=== PATIENT | female | born 1995 | race Caucasian/White ===

== ENCOUNTER 2018-03-11 00:26 | Emergency (ER) | payer BC, OTHER ==
[~2018-03-11] VITALS: Ht 180.3 cm; Wt 67.4 kg
[~2018-03-11 00:26] MED LIST: LXP10 PO
[2018-03-11 00:36] VITALS: TEMP 36.4; O2SAT 96; Ht 180.3 cm; Wt 67.4 kg
[2018-03-11 01:14] LABS: CALCIUM 8.3 mg/dl (8.5-10.1); CREATININE 0.77 mg/dl (0.60-1.20); POTASSIUM 3.3 mmol/L (3.5-5.1)
[2018-03-11 06:08] VITALS: BP 99/56; PULSE 89; O2SAT 96
--- NOTE | 2018-03-11 06:18 | EMERGENCY ROOM VISIT NOTE ---
ED Visit Note First contact with patient: 00:27 CHIEF COMPLAINT: Altered mental status from Alcohol overdose HISTORY OF PRESENT ILLNESS: This 22 year old white female patient presents to the emergency department via ambulance for evaluation of altered mental status, presumably from alcohol intoxication. The patient was found sleeping outside an apartment complex covered in vomit. She smelled of alcohol and was difficult to arouse. EMS was contacted, and now the patient presents for further evaluation. The patient does not report injury or trauma. She states that she was with her friends tonight at a green party, and she was going home afterwards. She does not have any concern for physical or sexual assault. She denies drug use. No chronic medical disease REVIEW OF SYSTEMS: Review of systems was somewhat limited secondary to patient' s presumed alcohol intoxication status. Review of systems was performed to the best of our ability and reperformed as the patient began to sober up. All other systems were reviewed and are negative. ALLERGIES: See EMR MEDICATIONS: See EMR PMH: No chronic medical disease SOCIAL HISTORY: Lives locally, drinks alcohol PHYSICAL EXAM VITALS: Vitals are noted on the nurse's note and reviewed by myself. Vital signs stable. GENERAL: White female, who is in no acute distress and resting comfortably. Patient is visibly altered and smells of alcohol. HEAD: Normocephalic atraumatic. EARS: External ear normal. External auditory canals clear, tympanic membranes pearly sullivan without erythema or effusion bilaterally. EYES: Pupils equal round and reactive to light and accommodation. Conjunctivae without injection, sclerae without icterus. Extraocular movements intact. NOSE: Patent, turbinates without inflammation or discharge. MOUTH: Mucous membranes moist. Tonsils are not enlarged. Pharynx without erythema, blood, vomitus, or exudate. Uvula midline. Airway patent. NECK: Supple without nuchal rigidity. No lymphadenopathy. Cervical spine is nontender. HEART: Regular rate and rhythm without murmurs gallops or rubs. LUNGS: Clear to auscultation bilaterally without wheezes, rales or rhonchi. No retractions or accessory muscle use. ABDOMEN: Positive normal bowel sounds x 4. Soft, nontender, without masses or organomegaly. No guarding or rebound tenderness. MUSCULOSKELETAL: No muscle atrophy, erythema, or edema noted. Gross motor function intact to all extremities. NEURO: Patient was alert to person but not place or time. They appear with altered mental status. SKIN: The skin was without rashes, erythema, edema, or bruising. No Tenting of the skin. EMERGENCY DEPARTMENT COURSE: Physical exam and history was performed. Nursing notes and EMR were reviewed. The patient appears to be altered on my examination. I suspect this is from an alcohol overdose. Conservative care measures and aspiration precautions were instituted. The patient was placed on desk monitor and watched during the patient's stay. The patient was placed in a prone position. Blood work was obtained and was reviewed. The patient's blood alcohol level was 271. This appears to be the primary cause of the altered status. Patient was reevaluated multiple times throughout the course of their emergency department stay. Over time the patient did sober up and was able to talk, walk , and drink fluids without difficulty. The patient was felt stable for discharge home. The patient was given alcohol intoxication handouts. The patient was discharged home in stable condition when sober. Differential diagnosis: Etiologies such as alcohol intoxication, metabolic, infection, hypoglycemia, electrolyte abnormalities, cardiac sources, intracerebral event, toxicologic, neurologic, as well as others were entertained. DIAGNOSIS: Alcohol use with intoxication Current/Historical Medications Unable to Obtain Active Prescriptions or Reported Meds Allergies Coded Allergies: No Known Allergies (Unverified , 04/20/16) Vital Signs Date Time Temp Pulse Resp B/P (MAP) Pulse Ox O2 Delivery O2 Flow Rate FiO2 03/11/18 06:08 89 18 99/56 96 Room Air 03/11/18 04:43 90 16 109/55 92 Room Air 03/11/18 04:37 95 03/11/18 02:21 88 18 108/79 98 Room Air 03/11/18 01:45 80 20 114/67 98 Room Air 03/11/18 00:41 78 03/11/18 00:36 96 Room Air 03/11/18 00:36 36.4 83 16 117/72 96 Room Air Laboratory Results 03/11/18 00:48 Test 03/11/18 00:48 Anion Gap 12.0 mmol/L (3-11) Est Creatinine Clear Calc Drug Dose 123.0 ml/min Estimated GFR () 127.9 Estimated GFR (Non- 110.4 BUN/Creatinine Ratio 15.9 (10-20) Calcium Level 8.3 mg/dl (8.5-10.1) Human Chorionic Gonadotropin, Qual NEG (NEG) Ethyl Alcohol mg/dL 271.0 mg/dl (0-3) Departure Information Impression Primary Impression: Alcohol use with intoxication Dispostion Home / Self-Care Condition GOOD Prescriptions Unable to Obtain Active Prescriptions or Reported Meds Forms HOME CARE DOCUMENTATION FORM, IMPORTANT VISIT INFORMATION Patient Instructions My [facility] Additional Instructions You were seen and evaluated today on an emergency basis only. This is not a substitute for, or an effort to provide, complete comprehensive medical care. It is not possible to recognize and treat all injuries or illnesses in a single emergency department visit. Keep well-hydrated. Small sips of water over a long period of time are better tolerated than large amounts at once. Tylenol 1000 mg every 6 hours as needed for pain (Maximum 3000 mg Tylenol in 24 hr period). Follow up with family doctor as needed. You are welcome to return to the emergency department anytime with new, worsening, or concerning symptoms.
== END 2018-03-11 06:35 | disposition home or self-care (01) ==
LOC: EDBD 00:26 → C.EDC 00:27 → C.EDB 06:35
DX: F10.929 Alcohol use, unspecified with intoxication, unspecified (principal); Y90.8 Blood alcohol level of 240 mg/100 ml or more

== ENCOUNTER 2018-03-13 04:10 | Inpatient (IN) | payer BC, OTHER ==
[~2018-03-13] VITALS: Ht 180.3 cm; Wt 65.3 kg
--- NOTE | 2018-03-13 04:24 | EMERGENCY ROOM VISIT NOTE ---
History Report prepared by Allie: Ryan Weems Under the Supervision of: Dr. Flavio Rodriguez M.D. First contact with patient: 04:17 Chief Complaint: MENTAL HEALTH EVALUATION Stated Complaint: MENTAL HEALTH EVAL History of Present Illness The patient is a 22 year old female who presents to the Emergency Room with complaints of resolved suicidal ideations that occurred just CONTINUOUS MINER. The patient states she has had similar ideations two years ago. She reports a history of anxiety and depression. The patient notes she has been coping with this by drinking large amounts of alcohol. She states she has a therapist and psychiatrist. The patient reports she was not drinking tonight. She notes she planned to jump off a parking garage. The patient states she was in her car on her way to the garage when she stopped and called an Uber to the ED. She reports she wants her parents to be involved, but she does not want them to know just yet. The patient notes she stopped taking Lexapro several months ago per her psychiatrist. She denies HI. Source of History: patient Onset: CONTINUOUS MINER Quality: other (SI) Timing: resolved Modifying Factors (Worsening): other (alcohol) Note: Denies HI Review of Systems See HPI for pertinent positives & negatives. A total of 10 systems reviewed and were otherwise negative. Past Medical & Surgical Medical Problems: (1) Anxiety (2) Depression Family History Patient reports no known family medical history. Social History Smoking Status: Never Smoker Alcohol Use: occasionally Housing Status: lives with roommate Occupation Status: [employer] student Current/Historical Medications No Active Prescriptions or Reported Meds Allergies Coded Allergies: No Known Allergies (Unverified , 04/20/16) Physical Exam Vital Signs Date Time Temp Pulse Resp B/P (MAP) Pulse Ox O2 Delivery O2 Flow Rate FiO2 03/13/18 11:40 36.8 81 20 126/85 98 03/13/18 07:00 81 20 126/85 98 Room Air 03/13/18 04:13 36.8 77 18 134/91 95 Room Air Physical Exam GENERAL: Awake, alert, well-appearing, in no acute distress HENT: Normocephalic, atraumatic. Oropharynx unremarkable. EYES: Normal conjunctiva. Sclera non-icteric. NECK: Supple. No nuchal rigidity. FROM. No JVD. RESPIRATORY: Clear to auscultation. CARDIAC: Regular rate, normal rhythm. Extremities warm and well perfused. Pulses equal. ABDOMEN: Soft, non-distended. No tenderness to palpation. No rebound or guarding. No masses. RECTAL: Deferred. MUSCULOSKELETAL: Chest examination reveals no tenderness. The back is symmetrical on inspection without obvious abnormality. There is no CVA tenderness to palpation. No joint edema. LOWER EXTREMITIES: Calves are equal size bilaterally and non-tender. No edema. No discoloration. NEURO: Normal sensorium. No sensory or motor deficits noted. SKIN: No rash or jaundice noted. PSYCH: Admits to SI with a plan. Denies HI. Medical Decision & Procedures Laboratory Results 03/13/18 04:57 Red Blood Count 4.37, Mean Corpuscular Volume 91.8, Mean Corpuscular Hemoglobin 32.0, Mean Corpuscular Hemoglobin Concent 34.9, Mean Platelet Volume 9.8, Neutrophils (%) (Auto) 82.1, Lymphocytes (%) (Auto) 9.5, Monocytes (%) (Auto) 7.3, Eosinophils (%) (Auto) 0.4, Basophils (%) (Auto) 0.2, Neutrophils # (Auto) 8.16, Lymphocytes # (Auto) 0.94, Monocytes # (Auto) 0.72, Eosinophils # (Auto) 0.04, Basophils # (Auto) 0.02 03/13/18 04:57 Test 03/13/18 04:45 03/13/18 04:57 Urine Color YELLOW Urine Appearance CLOUDY (CLEAR) Urine pH 5.5 (4.5-7.5) Urine Specific [place] 1.012 (1.000-1.030) Urine Protein NEG (NEG) Urine Glucose (UA) NEG (NEG) Urine Ketones NEG (NEG) Urine Occult Blood TRACE (NEG) Urine Nitrite NEG (NEG) Urine Bilirubin NEG (NEG) Urine Urobilinogen NEG (NEG) Urine Leukocyte Esterase NEG (NEG) Urine WBC (Auto) 1-5 /hpf (0-5) Urine RBC (Auto) 5-10 /hpf (0-4) Urine Hyaline Casts (Auto) 0 /lpf (0-5) Urine Epithelial Cells (Auto) >30 /lpf (0-5) Urine Bacteria (Auto) 2+ (NEG) Urine Opiates Screen NEG (NEG) Urine Methadone, Qualitative NEG (NEG) Urine Barbiturates NEG (NEG) Urine Phencyclidine (PCP) Level NEG (NEG) Ur Amphetamine/Methamphetamine NEG (NEG) MDMA (Ecstasy) Screen NEG (NEG) Urine Benzodiazepines Screen NEG (NEG) Urine Cocaine Metabolite NEG (NEG) Urine Marijuana (THC) POS (NEG) White Blood Count 9.93 K/uL (4.8-10.8) Red Blood Count 4.37 M/uL (4.2-5.4) Hemoglobin 14.0 g/dL (12.0-16.0) Hematocrit 40.1 % (37-47) Mean Corpuscular Volume 91.8 fL (80-100) Mean Corpuscular Hemoglobin 32.0 pg (25-34) Mean Corpuscular Hemoglobin Concent 34.9 g/dl (32-36) Platelet Count 420 K/uL (130-400) Mean Platelet Volume 9.8 fL (7.4-10.4) Neutrophils (%) (Auto) 82.1 % Lymphocytes (%) (Auto) 9.5 % Monocytes (%) (Auto) 7.3 % Eosinophils (%) (Auto) 0.4 % Basophils (%) (Auto) 0.2 % Neutrophils # (Auto) 8.16 K/uL (1.4-6.5) Lymphocytes # (Auto) 0.94 K/uL (1.2-3.4) Monocytes # (Auto) 0.72 K/uL (0.11-0.59) Eosinophils # (Auto) 0.04 K/uL (0-0.5) Basophils # (Auto) 0.02 K/uL (0-0.2) RDW Standard Deviation 44.9 fL (36.4-46.3) RDW Coefficient of Variation 13.3 % (11.5-14.5) Immature Granulocyte % (Auto) 0.5 % Immature Granulocyte # (Auto) 0.05 K/uL (0.00-0.02) Urine Test NEG (NEG) Anion Gap 10.0 mmol/L (3-11) Est Creatinine Clear Calc Drug Dose 101.9 ml/min Estimated GFR () 105.9 Estimated GFR (Non- 91.4 BUN/Creatinine Ratio 15.2 (10-20) Calcium Level 8.9 mg/dl (8.5-10.1) Total Bilirubin 0.6 mg/dl (0.2-1) Direct Bilirubin 0.2 mg/dl (0-0.2) Aspartate Amino Transf (AST/SGOT) 18 U/L (15-37) Alanine Aminotransferase (ALT/SGPT) 19 U/L (12-78) Alkaline Phosphatase 66 U/L (45-117) Total Protein 8.4 gm/dl (6.4-8.2) Albumin 4.0 gm/dl (3.4-5.0) Thyroid Stimulating Hormone (TSH) 1.480 uIu/ml (0.300-4.500) Ethyl Alcohol mg/dL < 3.0 mg/dl (0-3) Labs reviewed by ED physician. ED Course 0442: Past medical records reviewed. The patient was evaluated in room A06. A complete history and physical examination was performed. 0557: The patient was evaluated by psych management. The patient is pending bed placement. 0645: The patient was signed out to Dr. Olivo at the change of shift. Please refer to his note for further disposition. Medical Decision Differential diagnosis: Etiologies such as mood disorder, infection, hypoglycemia, electrolyte abnormalities, cardiac sources, intracerebral event, toxicologic, neurologic, as well as others were entertained. This is a 22-year-old female who presents emergency department over concerns she is going to harm herself. The patient wishes to jump off a parking [place] downtown. I asked to discuss the patient with her parents however at this point she is declining. I will also note the patient arrives during a period of high volume and high acuity. She was medically cleared by me and independently evaluated by [facility]. who admitted the patient to the floor. Medication Reconcilliation Current Medication List: was personally reviewed by me Blood Pressure Screening Patient's blood pressure: Elevated blood pressure Blood pressure disposition: Elevated BP felt to be situational Impression Primary Impression: Suicidal ideation Scribe Attestation The scribe's documentation has been prepared under my direction and personally reviewed by me in its entirety. I confirm that the note above accurately reflects all work, treatment, procedures, and medical decision making performed by me. Departure Information Dispostion Still a Patient Prescriptions No Active Prescriptions or Reported Meds Referrals No Doctor, Assigned (PCP) Patient Instructions My [facility]
[2018-03-13 05:09] LABS: BASO % 0.2 %; BASO ABS # 0.02 K/uL (0-0.2); EOS % 0.4 %; EOS ABS # 0.04 K/uL (0-0.5); HEMATOCRIT 40.1 % (37-47); IG# 0.05 K/uL (0.00-0.02); LYMPH % 9.5 %; LYMPH ABS # 0.94 K/uL (1.2-3.4); MEAN CELL VOLUME 91.8 fL (80-100); MEAN CORPUSCULAR HGB CONC 34.9 g/dl (32-36); MEAN PLATELET VOLUME 9.8 fL (7.4-10.4); MONO % 7.3 %; MONO ABS # 0.72 K/uL (0.11-0.59); NEUT % 82.1 %; NEUT ABS # 8.16 K/uL (1.4-6.5); PLATELET COUNT 420 K/uL (130-400); RED CELL DISTRIBUTION WIDTH CV 13.3 % (11.5-14.5); RED CELL DISTRIBUTION WIDTH SD 44.9 fL (36.4-46.3); WHITE BLOOD COUNT 9.93 K/uL (4.8-10.8)
[2018-03-13 05:40] LABS: CALCIUM 8.9 mg/dl (8.5-10.1); CREATININE 0.9 mg/dl (0.60-1.20); POTASSIUM 3.5 mmol/L (3.5-5.1); TOTAL PROTEIN 8.4 gm/dl (6.4-8.2)
--- NOTE | 2018-03-13 06:48 | EMERGENCY ROOM VISIT NOTE ---
ED Visit Note First contact with patient: 06:46 The patient was taken in signout from Dr. Rodriguze at the change of shift. Please see that note for details. The patient was pending psychiatric evaluation. The patient was reassessed and is resting comfortably. She was evaluated by [facility] mental health and accepted as a voluntary admission for further management.
[2018-03-13 11:40] VITALS: O2SAT 98
--- NOTE | 2018-03-13 14:00 | Psychiatric History & Physical ---
History Date of Service Mar 13, 2018. Identifying Data Sunita Alvarado is a 22-year-old female admitted on Mar 13, 2018 at 11:50 who currently is attending her Senior year at [employer]. Sunita Alvarado was admitted on a 201 voluntary commitment following worsening depression and SI with plan to jump off a parking garage. Information provided by the patient is considered to be reliable. Chief Complaint "I've been drinking a decent amount of alcohol, strung along with anxiety and depression." History of Present Illness Sunita Alvarado is a 22-year-old female admitted voluntarily for inpatient mental health treatment due to worsening depression and SI. Pt had been experiencing feelings of hopelessness for the last few weeks. Pt states she has been feeling much lower over the past few weeks. She reports that she has been feeling "fake " recently. Pt feels she has been a high-achiever, but is no longer feeling motivation behind her achievements. 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 She feels as though she continues to go through the actions, but is not feeling as interested in these tasks. Pt states she has "kept it all together." Pt was last hospitalized on our unit in 04/2016 for similar concerns. She states, "I've made no true changes from the time before." A significant stressor recently has been the patient's second public intoxication charge. Pt states she has used alcohol as a coping mechanism for quite some time, but is now realizing it has become a problem for her. Pt states she drinks to excess 6 + drinks per night about 3-4 nights per week. Pt is aware that this has not been helping her mood. Pt reports depressive symptoms of low mood, anhedonia, decreased motivation, difficulty falling asleep, decreased appetite, and hopelessness. Pt states she has had passive SI, "always in the back of my mind." This has worsened over the last few days. Pt states she had had a plan to jump from the parking garage for several days, but did not share with her friends that she had been feeling this way. She states, "I waited until my roommates were home asleep and then I got in my car." She states she sat in her car before turning it on, and realized she needed help. Pt called an Uber to drive her to the ED. Pt reports anxiety specifically related to school. She experiences racing thoughts and feels as though she can "never truly relax". Pt experiences tachycardia with her anxiety. Pt denies HI, A/V hallucinations, paranoia, rosa , symptoms more consistent with bipolar disorder, OCD, PTSD, and eating disorder. Pt denies other specific psychiatric concerns at this time. Past Psychiatric History Current OP Treatment: psychiatrist (Helen), therapist (Yasmin Cervantes) Prior Psych Hospitalizations: [facility] (04/2016) Access to a Gun: No Suicide Attempts: No Past Medication Trials Lexapro 10mg Past Medical/Surgical History History of Concussion/Seizure: No Allergies Allergies: Coded Allergies: No Known Allergies (Unverified , 04/20/16) Home Medications No Active Prescriptions or Reported Meds Family History Patient reports no known family medical history. History of Suicide: No History of Substance Abuse: Yes (grandfather - alcoholism) Psychiatric History: Yes Alcohol Use Alcohol Use In Past 12 Months: Yes (6 drinks 3 or 4 times a week) Smoking Use Smoking Status: Former Smoker Substance History Pt reports previous regular use of marijuana. States she has not been using as frequently. Denies other use of illicit substances. Reports drinking about 2- 3 cans of soda per day. 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 Relationship History: never Children: 0 Spiritual Affiliation: Voodoo. Goes to orthodoxy once monthly Legal History: reported (reports 1 underage drinking, and 2 public indecency charges) Psychological Trauma History: Denies Hx Traumatic Event Review of Systems Psych: denies symptoms other than stated above Constitutional: reports feeling as though she has a fever, recent weight loss Cardiovascular: reports tachycardia with anxiety GI: denied Neurologic: denied Musculoskeletal: reports back pain and tightness Remainder of 10 body systems also reviewed and denied other than noted above. Examination Physical Examination A physical exam was performed in the ER prior to admission to the unit by Dr. Flavio Rodriguez M.D.. I accept that physical as correct/medical clearance for the inpatient physical exam. Vital Signs Vital Signs Past 12 Hours Date Time Temp Pulse Resp B/P (MAP) Pulse Ox O2 Delivery O2 Flow Rate FiO2 03/13/18 11:40 36.8 81 20 126/85 98 03/13/18 07:00 81 20 126/85 98 Room Air 03/13/18 04:13 36.8 77 18 134/91 95 Room Air Laboratory Results Last 24 Hours Test 03/13/18 04:45 03/13/18 04:57 Urine Color YELLOW Urine Appearance CLOUDY Urine pH 5.5 Urine Specific [place] 1.012 Urine Protein NEG Urine Glucose (UA) NEG Urine Ketones NEG Urine Occult Blood TRACE Urine Nitrite NEG Urine Bilirubin NEG Urine Urobilinogen NEG Urine Leukocyte Esterase NEG Urine WBC (Auto) 1-5 /hpf Urine RBC (Auto) 5-10 /hpf Urine Hyaline Casts (Auto) 0 /lpf Urine Epithelial Cells (Auto) >30 /lpf Urine Bacteria (Auto) 2+ Urine Opiates Screen NEG Urine Methadone, Qualitative NEG Urine Barbiturates NEG Urine Phencyclidine (PCP) Level NEG Ur Amphetamine/Methamphetamine NEG MDMA (Ecstasy) Screen NEG Urine Benzodiazepines Screen NEG Urine Cocaine Metabolite NEG Urine Marijuana (THC) POS White Blood Count 9.93 K/uL Red Blood Count 4.37 M/uL Hemoglobin 14.0 g/dL Hematocrit 40.1 % Mean Corpuscular Volume 91.8 fL Mean Corpuscular Hemoglobin 32.0 pg Mean Corpuscular Hemoglobin Concent 34.9 g/dl Platelet Count 420 K/uL Mean Platelet Volume 9.8 fL Neutrophils (%) (Auto) 82.1 % Lymphocytes (%) (Auto) 9.5 % Monocytes (%) (Auto) 7.3 % Eosinophils (%) (Auto) 0.4 % Basophils (%) (Auto) 0.2 % Neutrophils # (Auto) 8.16 K/uL Lymphocytes # (Auto) 0.94 K/uL Monocytes # (Auto) 0.72 K/uL Eosinophils # (Auto) 0.04 K/uL Basophils # (Auto) 0.02 K/uL RDW Standard Deviation 44.9 fL RDW Coefficient of Variation 13.3 % Immature Granulocyte % (Auto) 0.5 % Immature Granulocyte # (Auto) 0.05 K/uL Urine Test NEG Sodium Level 136 mmol/L Potassium Level 3.5 mmol/L Chloride Level 103 mmol/L Carbon Dioxide Level 23 mmol/L Anion Gap 10.0 mmol/L Blood Urea Nitrogen 14 mg/dl Creatinine 0.90 mg/dl Est Creatinine Clear Calc Drug Dose 101.9 ml/min Estimated GFR () 105.9 Estimated GFR (Non- 91.4 BUN/Creatinine Ratio 15.2 Random Glucose 101 mg/dl Calcium Level 8.9 mg/dl Total Bilirubin 0.6 mg/dl Direct Bilirubin 0.2 mg/dl Aspartate Amino Transf (AST/SGOT) 18 U/L Alanine Aminotransferase (ALT/SGPT) 19 U/L Alkaline Phosphatase 66 U/L Total Protein 8.4 gm/dl Albumin 4.0 gm/dl Thyroid Stimulating Hormone (TSH) 1.480 uIu/ml Ethyl Alcohol mg/dL < 3.0 mg/dl Mental Examination During interview pt is: alert and oriented, cooperative Appearance: appropriately dressed, appropriately groomed Eye contact is: fair Motor behavior is: no abnormal motor movements (observed while laying in bed) Speech: normal in rate, rhythm & volume Affect: depressed, tearful Mood is: depressed Thought process: goal directed, clear, coherent Thought content: reality based without delusions Suicidal thought are: present (hopelessness, more prominent), Plan: present ( to jump off parking garage) Homicidal thoughts are: denied Hallucinations: denies auditory, denies visual Cognition: memory grossly intact, attention grossly intact, language grossly intact Intelligence estimated to be: consistent with level of education Insight: fair Judgement: fair Impression / Recommendations Impression 22-year-old female admitted for voluntary inpatient mental health admission due to worsening depression and SI. She reports previous trial of Lexapro; however , is not sure if she is interested in another medication trial. SSRIs discussed with the patient, specifically fluoxetine and sertraline. Pt is interested in taking time to consider her options and would like to discuss with her parents as well. Will encourage group and recreational therapy in the meantime. Pt continues to express SI and hopelessness at this time. She requires inpatient mental health treatment due to risk of self-harm if discharged prior to adequate processing of stressors. Inventory Assets Strengths: willingness for treatment, outpatient providers, supportive family Needs: consideration of re-starting medications, avoidance of alcohol Risk Factors Assessment : Yes /single/: Yes Higher / Fall in social status: No Access to guns: No Health problems: No Mental Health Diagnoses: Yes Substance use disorders: Yes Previous attempt: No Family history of suicide: Yes Previous psychiatric stay: Yes Hopelessness: Yes Smoker: No Protective Factors Assessment Mosque beliefs: Yes : No Responsible for young children: No Employed: Yes Stable relationships: No Supportive family: Yes Good rapport with provider: Yes Recommendations (1) Suicidal ideation 03/13 - Admitted to locked inpatient mental health unit on q 15 min checks for safety. - Encourage participation in group and recreational therapies - Encourage completion of a safety plan and involvement of outpatient supports prior to discharge (2) Depression 03/13 - Pt unsure at this time about starting medications, will continue to discuss - Encourage participation in group and recreational therapies - Assist patient in developing and utilizing healthy coping strategies - Encourage family session with involvement of outpatient supports - Coordination of care with outpatient providers - Completion of safety planning prior to discharge (3) Anxiety 03/13 - Encourage development and utilization of healthy coping strategies - prn hydroxyzine available for acute anxiety (4) Alcohol use with intoxication The patient's AUDIT score suggests problematic drinking (Zone III WHO). Brief intervention was offered and accepted Intervention (if performed) was greater than 5 min in length. Brief interventions include: 1. Assess Readiness to Quit, 2. Advise: Help Patient to Reduce or Abstain from Alcohol, 3. Agree: Set Specific, Feasible Goals, 4. Assist: Anticipate barriers, Problem-Solving Solutions. Social work to 5. Arrange: Referrals to appropriate treatment. Summary of intervention: The patient is in contemplation stage with regards to transtheoretical model of change. The patient is advised to decrease alcohol consumption due to depressant effects and risk of interactions with prescription medications. The patient agreed to [] and will be provided with recovery materials to continue to education self on how to cope with their condition without drinking. Dr. Cassandra Arroyo has personally been involved in the review of the above case and development of recommendations. CPT Code Initial Hospital Care: [id number]
[2018-03-13 14:29] VITALS: BP 121/79; PULSE 77; TEMP 36.4; Ht 180.3 cm; Wt 65.3 kg
[2018-03-13] MEDS ORDERED: LORAZEPAM 1 MG TAB PO PRN (16:15)
[2018-03-13 16:17] VITALS: BP 127/79; PULSE 101; TEMP 39
[2018-03-13] MEDS ORDERED: MAGNESIUM HYDROXIDE SUSP 30 ML UDC PO PRN (16:30)
[2018-03-13] MEDS ORDERED: SODIUM CHLORIDE 0.65% NA SOLN 45 ML (OCEAN) PRN (16:30)
[2018-03-13] MEDS ORDERED: hydrOXYzine HCL 25 MG TAB PO PRN ×2 (16:30)
[2018-03-13] MEDS ORDERED: ALUMINUM/MAGNESIUM SUSP 30 ML UDC PO PRN (16:30)
[2018-03-13] MEDS ORDERED: BISMUTH SUBSALICYLATE PER ML OMNICELL CHARGE PO PRN (16:30)
[2018-03-13] MEDS: ACETAMINOPHEN 325 MG TAB PO PRN ×2 (16:35→22:29)
[2018-03-13 18:08] VITALS: TEMP 38.7
[2018-03-13] MEDS: IBUPROFEN 600 MG TAB PO PRN (19:41)
[2018-03-13 20:40] VITALS: BP 127/76; PULSE 107; TEMP 38.2
[2018-03-13 22:27] VITALS: TEMP 38.9
[2018-03-14 07:09] VITALS: BP_SYST 112; BP_SYST 114; BP_DIAS 71; BP_DIAS 75; PULSE 93; TEMP 38.4
[2018-03-14] MEDS: IBUPROFEN 600 MG TAB PO PRN ×2 (07:18→15:25)
--- NOTE | 2018-03-14 09:54 | Psychiatric Progress Notes ---
Progress Note Date of Service Mar 14, 2018. Interval History Sunita Avlarado is a 22-year-old female admitted on Mar 13, 2018 at 11:50 who currently is attending her Senior year at [employer]. Sunita Alvarado was admitted on a 201 voluntary commitment following worsening depression and SI with plan to jump off a parking garage. Chief Complaint "it was a weird relief to come here". Subjective Patient was seen & assessed interval progress reviewed with Nursing. She was cooperative with meetings yesterday pm and slept 8 ours. She scored a 4 and a 5 on the AWSS. Temp 101.1 today and received Motrin. Parents are coming to unit for a meeting later today to determine if goes back to school or home to [facility]. Currently states she was superficially holding everything together and most people would be surprised that she is here. She would like to consider an SSRI retrial but is having some GI distress this am. Will repeat UA (on menses) but given fever understands should culture. Review of Systems Psych: denies symptoms other than stated above Constitutional: sweats Cardiovascular: denied GI: loose stool Neurologic: denied Remainder of 10 body systems also reviewed and denied other than noted above. Sleep Information Total Hours of Sleep: 8.25 Meal Information Percent of Dinner Consumed: 90 Mental Status Exam During interview pt is: alert and oriented, cooperative Appearance: appropriately dressed, appropriately groomed Eye contact is: fair Motor behavior is: no abnormal motor movements Speech: normal in rate, rhythm & volume Affect: depressed Mood is: depressed Thought process: goal directed, clear, coherent Thought content: reality based without delusions Suicidal thought are: present (passive ), Plan: present (to jump off parking garage prior to admission), Intent: denied Homicidal thoughts are: denied Hallucinations: denies auditory, denies visual Cognition: memory grossly intact, attention grossly intact, language grossly intact Intelligence estimated to be: consistent with level of education Insight: fair Judgement: fair Impression 22-year-old female admitted for voluntary inpatient mental health admission due to worsening depression and SI. She reports previous trial of Lexapro. She requires inpatient mental health treatment due to risk of self-harm if discharged prior to adequate processing of stressors. Plan (1) Suicidal ideation 03/13 - Admitted to [facility] inpatient mental health unit on q 15 min checks for safety. - Encourage participation in group and recreational therapies - Encourage completion of a safety plan and involvement of outpatient supports prior to discharge 03/14 -adjusting to unit, family meeting re: safety planning (2) Depression 03/13 - Pt unsure at this time about starting medications, will continue to discuss - Encourage participation in group and recreational therapies - Assist patient in developing and utilizing healthy coping strategies - Encourage family session with involvement of outpatient supports - Coordination of care with outpatient providers - Completion of safety planning prior to discharge 03/14 -would likely prefer Prozac given long half life over restarting Lexapro, particularly given GI symptoms, will review again in am if physically feeling better. (3) Anxiety 03/13 - Encourage development and utilization of healthy coping strategies - prn hydroxyzine available for acute anxiety (4) Alcohol use with intoxication The patient's AUDIT score suggests problematic drinking (Zone III WHO). Brief intervention was offered and accepted Intervention (if performed) was greater than 5 min in length. Brief interventions include: 1. Assess Readiness to Quit, 2. Advise: Help Patient to Reduce or Abstain from Alcohol, 3. Agree: Set Specific, Feasible Goals, 4. Assist: Anticipate barriers, Problem-Solving Solutions. Social work to 5. Arrange: Referrals to appropriate treatment. Summary of intervention: The patient is in contemplation stage with regards to transtheoretical model of change. The patient is advised to decrease alcohol consumption due to depressant effects and risk of interactions with prescription medications. The patient agreed to [] and will be provided with recovery materials to continue to education self on how to cope with their condition without drinking. 03/14 -notes 2 prior citations for drinking--1 in 6th grade and 1 sophomore year, worries she may have to deal with office of student conduct though recent incident was downtown Discharge / Aftercare Planning Primary Care Physician: Name: Latoya Álvarez Psychiatrist: Name: Dr. Chiang *call to confirm appt time before discharge* Date of Appointment: Mar 19, 2018 Time of Appointment: 1:30 p.m. Appointment Notes: [place] [id number] Therapist: Name: Helen Hoffman Date of Appointment: Mar 17, 2018 Time of Appointment: 3:00 p.m. Appointment Notes: [id number] Allie Nayak. [address] [place] [address] Rigging Man: Name: felicia Other: Name of Appointment #1: [facility] Appointment #1 Notes: [address] [place] [id number] Visit Code E&M Code: 79330 Inventory Assets Strengths: willingness for treatment, outpatient providers, supportive family Needs: consideration of re-starting medications, avoidance of alcohol Risk Factors Assessment : Yes /single/: Yes Higher / Fall in social status: No Health problems: No Mental Health Diagnoses: Yes Substance use disorders: Yes Previous attempt: No Family history of suicide: Yes Previous psychiatric stay: Yes Hopelessness: Yes Smoker: No Protective Factors Assessment Samaritan beliefs: Yes : No Responsible for young children: No Employed: Yes Stable relationships: No Supportive family: Yes Good rapport with provider: Yes Data Vital Signs Last 24 Hrs: Date Time Temp Pulse Resp B/P (MAP) Pulse Ox O2 Delivery O2 Flow Rate FiO2 03/14/18 07:09 38.4 93 16 112/71 114/75 03/13/18 22:27 38.9 03/13/18 20:40 38.2 107 18 127/76 (93) 03/13/18 18:08 38.7 03/13/18 16:17 39.0 101 18 127/79 (95) 03/13/18 14:29 36.4 77 16 121/79 03/13/18 11:40 36.8 81 20 126/85 98 Meds Administered Last 24 Hrs: Meds Administered (Past 24Hrs) Medications (Trade) Dose Ordered Sig/Kyleigh Route Start Time Stop Time Status Last Admin Dose Admin Acetaminophen (Tylenol Tab) 650 mg Q4H PRN PO 03/13/18 16:30 04/12/18 16:29 03/13/18 22:29 650 MG Ibuprofen (Motrin Tab) 600 mg QID PRN PO 03/13/18 16:30 04/12/18 16:29 03/14/18 07:18 600 MG
[2018-03-14 10:03] VITALS: BP 106/68; TEMP 36.9
[2018-03-14 12:57] VITALS: BP 110/72; PULSE 89; TEMP 37
[2018-03-14 16:25] VITALS: BP 115/80; PULSE 111; TEMP 36.6
[2018-03-14 20:36] VITALS: BP 117/83; PULSE 92; TEMP 36.6
[2018-03-15 06:33] VITALS: BP_SYST 111; BP_SYST 116; BP_DIAS 70; BP_DIAS 80; PULSE 120; PULSE 91; TEMP 37.2
[2018-03-15 09:17] VITALS: BP 115/70; PULSE 87; TEMP 36.6
[2018-03-15] MEDS ORDERED: COUGH DROP (SUGAR FREE) LOZ 24 LOZ/1 BOX LOZ PRN (11:15)
--- NOTE | 2018-03-15 11:15 | Psychiatric Progress Notes ---
Progress Note Date of Service Mar 15, 2018. Interval History Sunita Alvarado is a 22-year-old female admitted on Mar 13, 2018 at 11:50 who currently is attending her Senior year at [employer]. Sunita Alvarado was admitted on a 201 voluntary commitment following worsening depression and SI with plan to jump off a parking garage. Chief Complaint "I'm planning to be more honest with my outpatient treatment". Subjective Patient was seen & assessed interval progress reviewed with Nursing. Patient met with parents and sister, supportive. Mother willing to stay in [place] area for a few weeks to provide support/closer monitor patient if needed. There was some discussion about level of care needed for ETOH use, patient hopes to return to classes at this point and did make some adjustments to her schedule yesterday. D resolved. Sore throat examined--some redness, no exudate. Fever resolved. Review of Systems Psych: denies symptoms other than stated above Constitutional: other than above Cardiovascular: denied GI: denied Neurologic: denied Remainder of 10 body systems also reviewed and denied other than noted above. Sleep Information Total Hours of Sleep: 7.00 Meal Information Percent of Breakfast Consumed: 90 Percent of Lunch Consumed: 90 Percent of Dinner Consumed: 90 Mental Status Exam During interview pt is: alert and oriented, cooperative Appearance: appropriately dressed, appropriately groomed Eye contact is: fair Motor behavior is: no abnormal motor movements Speech: normal in rate, rhythm & volume Affect: euthymic Mood is: depressed Thought process: goal directed, clear, coherent Thought content: reality based without delusions Suicidal thought are: denied, Plan: denied, Intent: denied Homicidal thoughts are: denied Hallucinations: denies auditory, denies visual Cognition: memory grossly intact, attention grossly intact, language grossly intact Intelligence estimated to be: consistent with level of education Insight: fair Judgement: fair Impression 22-year-old female admitted for voluntary inpatient mental health admission due to worsening depression and SI. She reports previous trial of Lexapro. She requires inpatient mental health treatment due to risk of self-harm if discharged prior to adequate processing of stressors. Plan (1) Suicidal ideation 03/13 - Admitted to [facility] inpatient mental health unit on q 15 min checks for safety. - Encourage participation in group and recreational therapies - Encourage completion of a safety plan and involvement of outpatient supports prior to discharge 03/14 -adjusting to unit, family meeting re: safety planning (2) Depression 03/13 - Pt unsure at this time about starting medications, will continue to discuss - Encourage participation in group and recreational therapies - Assist patient in developing and utilizing healthy coping strategies - Encourage family session with involvement of outpatient supports - Coordination of care with outpatient providers - Completion of safety planning prior to discharge 03/14 -would likely prefer Prozac given long half life over restarting Lexapro, particularly given GI symptoms, will review again in am if physically feeling better. 03/15 -Risks/benefits/alternatives reviewed re: antidepressants for the treatment of depression and/or anxiety. Discussion included but was not limited to FDA warnings re: suicidality in adolescents and young adults. The patient agreed to a trial of Prozac 10 mg daily. (3) Anxiety 03/13 - Encourage development and utilization of healthy coping strategies - prn hydroxyzine available for acute anxiety (4) Alcohol use with intoxication The patient's AUDIT score suggests problematic drinking (Zone III WHO). Brief intervention was offered and accepted Intervention (if performed) was greater than 5 min in length. Brief interventions include: 1. Assess Readiness to Quit, 2. Advise: Help Patient to Reduce or Abstain from Alcohol, 3. Agree: Set Specific, Feasible Goals, 4. Assist: Anticipate barriers, Problem-Solving Solutions. Social work to 5. Arrange: Referrals to appropriate treatment. Summary of intervention: The patient is in contemplation stage with regards to transtheoretical model of change. The patient is advised to decrease alcohol consumption due to depressant effects and risk of interactions with prescription medications. The patient agreed to [] and will be provided with recovery materials to continue to education self on how to cope with their condition without drinking. 03/14 -notes 2 prior citations for drinking--1 in 6th grade and 1 sophomore year, worries she may have to deal with office of student conduct though recent incident was downtown 03/15 -IOP seems most appropriate level of D&A tx, patient currently with regular IT at [facility]. Discharge / Aftercare Planning Primary Care Physician: Name: Latoya Álvarez Psychiatrist: Name: Dr. Chiang *call to confirm appt time before discharge* Date of Appointment: Mar 19, 2018 Time of Appointment: 1:30 p.m. Appointment Notes: [place] [address] Therapist: Name: Helen Hoffman Date of Appointment: Mar 17, 2018 Time of Appointment: 3:00 p.m. Appointment Notes: [address] [address], [place] [address] Special Education Paraprofessional: Name: felicia Other: Name of Appointment #1: [facility] Appointment #1 Notes: [address] [place] [address], [place] [id number] Visit Code E&M Code: 36695 Inventory Assets Strengths: willingness for treatment, outpatient providers, supportive family Needs: consideration of re-starting medications, avoidance of alcohol Risk Factors Assessment : Yes /single/: Yes Higher / Fall in social status: No Health problems: No Mental Health Diagnoses: Yes Substance use disorders: Yes Previous attempt: No Family history of suicide: Yes Previous psychiatric stay: Yes Hopelessness: Yes Smoker: No Protective Factors Assessment Uatsdin beliefs: Yes : No Responsible for young children: No Employed: Yes Stable relationships: No Supportive family: Yes Good rapport with provider: Yes Data Vital Signs Last 24 Hrs: Date Time Temp Pulse Resp B/P (MAP) Pulse Ox O2 Delivery O2 Flow Rate FiO2 03/15/18 09:17 36.6 87 16 115/70 (85) 03/15/18 06:33 37.2 91 16 111/70 120 116/80 03/14/18 20:36 36.6 92 16 117/83 (94) 03/14/18 16:25 36.6 111 18 115/80 (92) 03/14/18 12:57 37.0 89 16 110/72 (85) Room Air Meds Administered Last 24 Hrs: Meds Administered (Past 24Hrs) Medications (Trade) Dose Ordered Sig/Kyleigh Route Start Time Stop Time Status Last Admin Dose Admin Acetaminophen (Tylenol Tab) 650 mg Q4H PRN PO 03/13/18 16:30 04/12/18 16:29 03/13/18 22:29 650 MG Ibuprofen (Motrin Tab) 600 mg QID PRN PO 03/13/18 16:30 04/12/18 16:29 03/14/18 15:25 600 MG
[2018-03-15] MEDS: FLUOXETINE HCL 10 MG CAP PO SCH (13:37)
[2018-03-16 06:50] VITALS: BP_SYST 111; BP_SYST 115; BP_DIAS 72; BP_DIAS 75; PULSE 78; PULSE 79; TEMP 36.8
[2018-03-16] MEDS: FLUOXETINE HCL 10 MG CAP PO SCH (08:09)
--- NOTE | 2018-03-16 09:07 | Psychiatric Progress Notes ---
Progress Note Date of Service Mar 16, 2018. Interval History Sunita Alvarado is a 22-year-old female admitted on Mar 13, 2018 at 11:50 who currently is attending her Senior year at [employer]. Sunita Alvarado was admitted on a 201 voluntary commitment following worsening depression and SI with plan to jump off a parking garage. Chief Complaint "I'm feeling a lot better since I think the last time we talked". Subjective Patient was seen & assessed interval progress reviewed with Treatment Team. Staff report the patient has been noticing improvement with physical symptoms since admission, she was also willing to begin fluoxetine, which she has reportedly tolerated well. Pt was seen today to assess progress since admission. She states she is feeling much better. Her physical symptoms have nearly completely resolved and the patient has noticed mild improvement in mood. She informs this provider of the outcome of her family meeting. She is planning to complete the semester and will be living with her mother in order to ensure she is able to attain her commitment to sobriety. Pt states she is appreciative that "all of my family is on-board with everything", but feels a bit saddened that her family is giving up so much to help her. She also was able to speak with a tapper helper who is a family friend about her recent public intoxication charge. She states she was advised to plead guilty, which may result in a fine or community service. Pt was reassured that the charge is a summary offense and would likely not affect her applications to law school or her ability to become a tapper helper - which was reassuring to her. She denies physical side effects or SI from initiation of fluoxetine 10mg. Pt states she is agreeable to exploring options for IOP as she feels it would be helpful. Pt denies SI since admission. She denies other questions or concerns. Review of Systems Psych: denies symptoms other than stated above Constitutional: denied Cardiovascular: denied GI: denied Neurologic: denied Remainder of 10 body systems also reviewed and denied other than noted above. Sleep Information Total Hours of Sleep: 7.25 Meal Information Percent of Breakfast Consumed: 90 Percent of Lunch Consumed: 100 Percent of Dinner Consumed: 100 Mental Status Exam During interview pt is: alert and oriented, cooperative Appearance: appropriately dressed, appropriately groomed Eye contact is: good Motor behavior is: steady gait & station, no abnormal motor movements Speech: normal in rate, rhythm & volume Affect: euthymic Mood is: other ("good, a lot better") Thought process: goal directed, clear, coherent Thought content: reality based without delusions Suicidal thought are: denied, Plan: denied, Intent: denied Homicidal thoughts are: denied Hallucinations: denies auditory, denies visual Cognition: memory grossly intact, attention grossly intact, language grossly intact Intelligence estimated to be: consistent with level of education Insight: fair Judgement: fair Impression 22-year-old female admitted for voluntary inpatient mental health admission due to worsening depression and SI. Pt has been participating in treatment and appears to be benefiting. She has held a meeting with parents to discuss best plan to ensure success with sobriety. She has been tolerating fluoxetine 10mg without side effects and declines offer to increase to 20mg until she is able to discuss with her outpatient psychiatrist. Still awaiting set-up of IOP to address chronic alcohol abuse, which is a large stressor and highly impacts her mental health. She requires inpatient mental health treatment due to risk of self-harm if discharged prior to adequate processing of stressors. Plan (1) Suicidal ideation 03/13 - Admitted to locked inpatient mental health unit on q 15 min checks for safety. - Encourage participation in group and recreational therapies - Encourage completion of a safety plan and involvement of outpatient supports prior to discharge 03/14 -adjusting to unit, family meeting re: safety planning 03/16 - Currently denying SI. (2) Depression 03/13 - Pt unsure at this time about starting medications, will continue to discuss - Encourage participation in group and recreational therapies - Assist patient in developing and utilizing healthy coping strategies - Encourage family session with involvement of outpatient supports - Coordination of care with outpatient providers - Completion of safety planning prior to discharge 03/14 -would likely prefer Prozac given long half life over restarting Lexapro, particularly given GI symptoms, will review again in am if physically feeling better. 03/15 -Risks/benefits/alternatives reviewed re: antidepressants for the treatment of depression and/or anxiety. Discussion included but was not limited to FDA warnings re: suicidality in adolescents and young adults. The patient agreed to a trial of Prozac 10 mg daily. 03/16 - Pt declines increase to 20mg until she speaks with her psychiatrist, will continue current medications - Explore options of IOP to address chronic alcohol abuse - Continue to coordinate care with outpatient providers (3) Anxiety 03/13 - Encourage development and utilization of healthy coping strategies - prn hydroxyzine available for acute anxiety (4) Alcohol use with intoxication The patient's AUDIT score suggests problematic drinking (Zone III WHO). Brief intervention was offered and accepted Intervention (if performed) was greater than 5 min in length. Brief interventions include: 1. Assess Readiness to Quit, 2. Advise: Help Patient to Reduce or Abstain from Alcohol, 3. Agree: Set Specific, Feasible Goals, 4. Assist: Anticipate barriers, Problem-Solving Solutions. Social work to 5. Arrange: Referrals to appropriate treatment. Summary of intervention: The patient is in contemplation stage with regards to transtheoretical model of change. The patient is advised to decrease alcohol consumption due to depressant effects and risk of interactions with prescription medications. The patient agreed to [] and will be provided with recovery materials to continue to education self on how to cope with their condition without drinking. 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 Discharge / Aftercare Planning Primary Care Physician: Name: Latoya Álvarez Psychiatrist: Name: Dr. Chiang *call to confirm appt time before discharge* Date of Appointment: Mar 19, 2018 Time of Appointment: 1:30 p.m. Appointment Notes: [address] [place] [address] Therapist: Name: [facility] Audi Hoffman Date of Appointment: Mar 17, 2018 Time of Appointment: 3:00 p.m. Appointment Notes: [address] [place] [address] [facility] Teacher: Name: . Other: Name of Appointment #1: [facility] Appointment #1 Notes: [address] [place] [id number] Visit Code E&M Code: 73435 Inventory Assets Strengths: willingness for treatment, outpatient providers, supportive family Needs: consideration of re-starting medications, avoidance of alcohol Risk Factors Assessment : Yes /single/: Yes Higher / Fall in social status: No Health problems: No Mental Health Diagnoses: Yes Substance use disorders: Yes Previous attempt: No Family history of suicide: Yes Previous psychiatric stay: Yes Hopelessness: Yes Smoker: No Protective Factors Assessment Buddhism beliefs: Yes : No Responsible for young children: No Employed: Yes Stable relationships: No Supportive family: Yes Good rapport with provider: Yes Data Vital Signs Last 24 Hrs: Date Time Temp Pulse Resp B/P (MAP) Pulse Ox O2 Delivery O2 Flow Rate FiO2 03/16/18 06:50 36.8 79 16 115/72 78 111/75 03/15/18 09:17 36.6 87 16 115/70 (85) Meds Administered Last 24 Hrs: Meds Administered (Past 24Hrs) Medications (Trade) Dose Ordered Sig/Kyleigh Route Start Time Stop Time Status Last Admin Dose Admin Fluoxetine HCl (Prozac Cap) 10 mg QAM PO 03/15/18 11:30 04/14/18 11:29 03/16/18 08:09 10 MG Lab Results Last 24 Hrs: Last 24 Hours Test 03/15/18 14:40 Urine Color YELLOW Urine Appearance CLEAR Urine pH 5.5 Urine Specific [place] 1.006 Urine Protein NEG Urine Glucose (UA) NEG Urine Ketones NEG Urine Occult Blood TRACE Urine Nitrite NEG Urine Bilirubin NEG Urine Urobilinogen NEG Urine Leukocyte Esterase NEG Urine WBC (Auto) /hpf Urine RBC (Auto) /hpf Urine Hyaline Casts (Auto) /lpf Urine Epithelial Cells (Auto) /lpf Urine Bacteria (Auto) Urine RBC 0-4 /hpf Urine WBC 0 /hpf Urine Epithelial Cells 0-5 /lpf Urine Bacteria NEG
[2018-03-17 06:48] VITALS: BP_SYST 119; BP_DIAS 79; BP_DIAS 82; PULSE 71; PULSE 80; TEMP 36.7
[2018-03-17] MEDS: FLUOXETINE HCL 10 MG CAP PO SCH (08:50)
[2018-03-17] MEDS ORDERED: FLUO10CA24 PO (09:16)
--- NOTE | 2018-03-17 09:35 | Discharge Instructions ---
Discharge Information Report Includes Report will include the: Discharge Instructions & Summary Admission Admission Date / Time: Mar 13, 2018 at 11:50 Reason for Admission: Depression Nos Discharge Discharge Diagnosis / Problem: Depression, alcohol use disorder Condition at Discharge: Good Discharge Goals Goal(s): Improve function, Improve disease control, Learn about illness, Therapeutic intervention Activity Recommendations Activity Limitations: per Instructions/Follow-up section . Instructions / Follow-Up Instructions / Follow-Up . SPECIAL CARE INSTRUCTIONS: 1. Follow through with your scheduled aftercare appointments. If unable to keep an appointment, please call to reschedule. 2. Take your medication only as prescribed. Medication should not be changed or stopped without the approval of your doctor. In the event of worsening symptoms or concerns about side effects, contact your doctor immediately. 3. Utilize new healthy coping skills, anger management skills, and stress management skills learned during your hospitalization. Journal feelings and process them with a support person. Identify stressors or situations that may result in relapse, deterioration or inappropriate behaviors and develop a plan to deal with those issues. 4. If your coping skills are ineffective and you are in crisis, contact your outpatient providers for direction. If unable to reach your providers, please call the CAN HELP LINE AT or go to the closest Emergency Room. 5. Avoid alcohol and un-prescribed drugs. Follow up with substance abuse counseling at [facility]. 6. You have been provided with the Mental Health Advance Directives Pamphlet for your review. AFTERCARE APPOINTMENTS: * Please call your insurance company prior to your scheduled appointment to confirm your aftercare providers are covered. Take your insurance information to your appointments. . Discharge / Aftercare Planning Primary Care Physician: Name: [facility] Appointment Notes: follow up as needed Psychiatrist: Name: Dr. Chiang *call to confirm appt time before discharge* Date of Appointment: Mar 19, 2018 Time of Appointment: 1:30 p.m. Appointment Notes: [place] [address] Therapist: Name Of Therapist: Helen Hoffman (ext [phone]) Date of Appointment: Mar 17, 2018 Time of Appointment: 3:00 p.m. Appointment Comments: [address], [place] [address] Lubricating Specialist: Name: . Other: Name of Appointment #1: [facility] Date of Appointment #1: Mar 19, 2018 Time of Appointment #1: 11:00 a.m. Appointment #1 Notes: [address] [place] [address] . Follow-Up Care Plan for Follow-Up Care: See above. Current Hospital Diet Patient's current hospital diet: Regular Diet Discharge Diet Recommended Diet: Regular Diet Procedures Procedures Performed: No Pending Studies Pending Studies at Discharge: No Medical Emergencies . Who to Call and When: Medical Emergencies: For questions or emergencies related to your hospital stay, please contact the Inpatient Behavioral Health Unit at [phone]. A mud plant operator is on-call 10/02 for the Behavioral Health Unit for emergencies At any time you feel your situation is an emergency, you may also call 911 immediately. . Non-Emergent Contact Non-Emergency issues call your: Psychiatrist, Therapist Past History Medical & Surgical History: (1) Alcohol intoxication Advance Directives Existing Advance Directive: No Do You Have an Existing Mental: No Existing Living Will: No Existing Power of Corporate Human Resources Manager: No Advance Directives Info Given: To Pt/S.O. Advance Directives Reason: Declines as Mental Health Visit. Discharge Summary Admission HPI Per the Admitting provider: Sunita Alvarado is a 22-year-old female admitted voluntarily for inpatient mental health treatment due to worsening depression and SI. Pt had been experiencing feelings of hopelessness for the last few weeks. Pt states she has been feeling much lower over the past few weeks. She reports that she has been feeling "fake " recently. Pt feels she has been a high-achiever, but is no longer feeling motivation behind her achievements. 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 She feels as though she continues to go through the actions, but is not feeling as interested in these tasks. Pt states she has "kept it all together." Pt was last hospitalized on our unit in 04/2016 for similar concerns. She states, "I've made no true changes from the time before." A significant stressor recently has been the patient's second public intoxication charge. Pt states she has used alcohol as a coping mechanism for quite some time, but is now realizing it has become a problem for her. Pt states she drinks to excess 6 + drinks per night about 3-4 nights per week. Pt is aware that this has not been helping her mood. Pt reports depressive symptoms of low mood, anhedonia, decreased motivation, difficulty falling asleep, decreased appetite, and hopelessness. Pt states she has had passive SI, "always in the back of my mind." This has worsened over the last few days. Pt states she had had a plan to jump from the parking garage for several days, but did not share with her friends that she had been feeling this way. She states, "I waited until my roommates were home asleep and then I got in my car." She states she sat in her car before turning it on, and realized she needed help. Pt called an Uber to drive her to the ED. Pt reports anxiety specifically related to school. She experiences racing thoughts and feels as though she can "never truly relax". Pt experiences tachycardia with her anxiety. Pt denies HI, A/V hallucinations, paranoia, rosa , symptoms more consistent with bipolar disorder, OCD, PTSD, and eating disorder. Pt denies other specific psychiatric concerns at this time. Hospital Course (1) Suicidal ideation 03/13 - Admitted to locked inpatient mental health unit on q 15 min checks for safety. - Encourage participation in group and recreational therapies - Encourage completion of a safety plan and involvement of outpatient supports prior to discharge 03/14 - adjusting to unit, family meeting re: safety planning 03/16 - Currently denying SI. 03/17 -Patient continues to deny SI, is able to review her safety plan, and is requesting discharge. (2) Depression 03/13 - Pt unsure at this time about starting medications, will continue to discuss - Encourage participation in group and recreational therapies - Assist patient in developing and utilizing healthy coping strategies - Encourage family session with involvement of outpatient supports - Coordination of care with outpatient providers - Completion of safety planning prior to discharge 03/14 -would likely prefer Prozac given long half life over restarting Lexapro, particularly given GI symptoms, will review again in am if physically feeling better. 03/15 -Risks/benefits/alternatives reviewed re: antidepressants for the treatment of depression and/or anxiety. Discussion included but was not limited to FDA warnings re: suicidality in adolescents and young adults. The patient agreed to a trial of Prozac 10 mg daily. 03/16 - Pt declines increase to 20mg until she speaks with her psychiatrist, will continue current medications - Explore options of IOP to address chronic alcohol abuse - Continue to coordinate care with outpatient providers 03/17 -Tolerating fluoxetine 10 mg daily well, continue current dose, and further titration to be done by outpatient psychiatrist. -Follow-up with Dr. Chiang 03/19/2018; send records to coordinate care. (3) Anxiety 03/13 - Encourage development and utilization of healthy coping strategies - prn hydroxyzine available for acute anxiety (4) Alcohol use with intoxication The patient's AUDIT score suggests problematic drinking (Zone III WHO). Brief intervention was offered and accepted Intervention (if performed) was greater than 5 min in length. Brief interventions include: 1. Assess Readiness to Quit, 2. Advise: Help Patient to Reduce or Abstain from Alcohol, 3. Agree: Set Specific, Feasible Goals, 4. Assist: Anticipate barriers, Problem-Solving Solutions. Social work to 5. Arrange: Referrals to appropriate treatment. Summary of intervention: The patient is in contemplation stage with regards to transtheoretical model of change. The patient is advised to decrease alcohol consumption due to depressant effects and risk of interactions with prescription medications. The patient agreed to work on this and continue outpatient substance abuse treatment, and will be provided with recovery materials to continue to education self on how to cope with their condition without drinking. 03/14 -notes 2 prior citations for drinking--1 in 6th grade and 1 sophomore year, worries she may have to deal with office of student conduct though recent incident was downtown 03/15 -IOP seems most appropriate level of D&A tx, patient currently with regular IT at [facility]. 03/17 -follow-up with therapist at [facility] this afternoon, recommend IOP to address alcohol use disorder. The risks of ongoing alcohol abuse have been reviewed with the patient, as well as the recommendations for abstinence. Risk Factors Assessment : Yes /single/: Yes Higher / Fall in social status: No Access to guns: No Health problems: No Mental Health Diagnoses: Yes Substance use disorders: Yes Previous attempt: No Family history of suicide: Yes Previous psychiatric stay: Yes Hopelessness: Yes Smoker: No Protective Factors Assessment Jehovah'S Witness beliefs: Yes : No Responsible for young children: No Employed: Yes Stable relationships: No Supportive family: Yes Good rapport with provider: Yes Absence of risk factors above: Yes (Risk factors were mitigated by admission to the inpatient unit, use of medications to target depression and anxiety, education about the risks of ongoing alcohol use and recommendations for abstinence, recovery protocol, recommending a higher level of care with respect to substance abuse treatment, coordination of care with outpatient providers, family meeting with parents and sister, participation in groups and therapy on the unit, and working on healthy coping skills and a discharge safety plan. The patient has consistently denied suicidal thoughts here, reports improved mood, is tolerating medication well, performing ADLs independently, able to review her discharge safety plan, and willing to follow up with outpatient treatment. She is requesting discharge, and that she is no longer at acute risk of harm to herself, can be managed as an outpatient at this time. She does not have significant risk factors for harm to others.) Day of Discharge Assessment Hospital course: On admission, the patient was not sure if she wanted to try another antidepressant, and options were discussed with her. The following day, she reported GI distress, but was willing to consider a trial of a different SSRI. The following day she was started on fluoxetine 10 mg, as GI symptoms had resolved. She was febrile to 101.1 on 03/14/2018, so UA was repeated as initial sample was contaminated. Results were normal. She was monitored for alcohol withdrawal and did demonstrate some symptoms, but insufficient to trigger use of benzodiazepines. She had a family meeting with her parents and sister on . They were supportive, and stated that they were unaware how much she had been struggling. They talked about the need for better communication, both with them and with her outpatient providers, as she reported that she had not been open with anybody about the severity of her symptoms. Her mother offered to moved to [place] if the patient remained in school, in order to live with her and provide support. They discussed her alcohol abuse and her sense that she uses alcohol as a coping mechanism. The social media developer spoke with her outpatient psychiatrist and attempted to contact her outpatient therapist to coordinate care. She was observed to be eating and sleeping well, attended and participated in groups, and interacted appropriately with staff and peers. She reported improved mood, and resolution of suicidal thoughts. Day of discharge assessment: The patient reports her mood is "good," and she is requesting discharge today. She denies suicidal thoughts, and feels safe leaving the hospital. She is tolerating the fluoxetine well, and denies symptoms of alcohol withdrawal. She is able to outline her plan for outpatient treatment, as well as her safety plan. We reviewed her UA results, and she denies UTI symptoms. MSE: Well-nourished, well-developed female, casually dressed and adequately groomed. Seated in no acute distress, with good eye contact. Gait and station are normal, no abnormal movements. Mood is "good," and affect is appropriate, reactive, and congruent. Speech is spontaneous, normal rate, volume, and tone. Thoughts are linear and goal directed. Denies SI, HI, AVH, and paranoia. No delusions are evident. Memory, attention, and language are grossly intact. Level of intelligence estimated to be average. Insight and judgment are fair. Laboratory Test 03/13/18 04:45 03/13/18 04:57 03/15/18 14:40 Urine Color YELLOW YELLOW Urine Appearance CLOUDY CLEAR Urine pH 5.5 5.5 Urine Specific [place] 1.012 1.006 Urine Protein NEG NEG Urine Glucose (UA) NEG NEG Urine Ketones NEG NEG Urine Occult Blood TRACE TRACE Urine Nitrite NEG NEG Urine Bilirubin NEG NEG Urine Urobilinogen NEG NEG Urine Leukocyte Esterase NEG NEG Urine WBC (Auto) 1-5 Urine RBC (Auto) 5-10 Urine Hyaline Casts (Auto) 0 Urine Epithelial Cells (Auto) >30 Urine Bacteria (Auto) 2+ Urine Opiates Screen NEG Urine Methadone, Qualitative NEG Urine Barbiturates NEG Urine Phencyclidine (PCP) Level NEG Ur Amphetamine/Methamphetamine NEG MDMA (Ecstasy) Screen NEG Urine Benzodiazepines Screen NEG Urine Cocaine Metabolite NEG Urine Marijuana (THC) POS Urine Marijuana (THC Carboxy Acid) 23 White Blood Count 9.93 Red Blood Count 4.37 Hemoglobin 14.0 Hematocrit 40.1 Mean Corpuscular Volume 91.8 Mean Corpuscular Hemoglobin 32.0 Mean Corpuscular Hemoglobin Concent 34.9 Platelet Count 420 Mean Platelet Volume 9.8 Neutrophils (%) (Auto) 82.1 Lymphocytes (%) (Auto) 9.5 Monocytes (%) (Auto) 7.3 Eosinophils (%) (Auto) 0.4 Basophils (%) (Auto) 0.2 Neutrophils # (Auto) 8.16 Lymphocytes # (Auto) 0.94 Monocytes # (Auto) 0.72 Eosinophils # (Auto) 0.04 Basophils # (Auto) 0.02 RDW Standard Deviation 44.9 RDW Coefficient of Variation 13.3 Immature Granulocyte % (Auto) 0.5 Immature Granulocyte # (Auto) 0.05 Urine Test NEG Sodium Level 136 Potassium Level 3.5 Chloride Level 103 Carbon Dioxide Level 23 Anion Gap 10.0 Blood Urea Nitrogen 14 Creatinine 0.90 Est Creatinine Clear Calc Drug Dose 101.9 Estimated GFR () 105.9 Estimated GFR (Non- 91.4 BUN/Creatinine Ratio 15.2 Random Glucose 101 Calcium Level 8.9 Total Bilirubin 0.6 Direct Bilirubin 0.2 Aspartate Amino Transferase (AST) 18 Alanine Aminotransferase (ALT) 19 Alkaline Phosphatase 66 Total Protein 8.4 Albumin 4.0 Thyroid Stimulating Hormone (TSH) 1.480 Ethyl Alcohol mg/dL < 3.0 Urine RBC 0-4 Urine WBC 0 Urine Epithelial Cells 0-5 Urine Bacteria NEG Total Time Total Time Spent (min): Greater than 30 minutes Total Time Included: examination of the patient, discharge planning, medication reconciliation Transition of Care Transition of care record: was reviewed with the patient Tobacco Cessation at Discharge Smoking Status: Former Smoker FDA approved Prescription: non-smoker
== END 2018-03-17 12:05 | disposition home or self-care (01) | DRG 881 ==
LOC: C.EDB 04:11 → C.MHU 11:50
PROVIDERS: ADMIT Psychiatry & Neurology Child & Adolescent Psychiatry; ATTEND Psychiatry & Neurology Child & Adolescent Psychiatry
DX: F32.9 Major depressive disorder, single episode, unspecified (principal); R45.851 Suicidal ideations; F41.9 Anxiety disorder, unspecified; F10.929 Alcohol use, unspecified with intoxication, unspecified